=== PATIENT | female | born 1955 | race American Indian/Alaskan Native ===

== ENCOUNTER 2017-11-19 06:34 | Day surgery (SDC) | payer BC ==
[~2017-11-19 06:34] MED LIST: ANCEF/STERILE WATER 2 GM/20 ML IV NR; MARCAINE-EPI 0.25%-1:200,000 INFILTRATI ONE; NACL 0.9% IR ONE
[2017-11-19] MEDS ORDERED: MARCAINE-EPI 0.25%-1:200,000 INFILTRATI ONE (06:55)
[2017-11-19] MEDS ORDERED: NACL BACTERIOSTATIC INFILTRATI ONE (07:08)
--- NOTE | 2017-11-19 07:39 | Anesthesia Consultation ---
Anesthesia Consult and Med Hx Date of service: 11/19/17 - Airway Anesthetic Teeth Evaluation: Good ROM Head & Neck: Adequate Mental/Hyoid Distance: Adequate Mallampati Class: Class II Intubation Access Assessment: Good - Pulmonary Exam CTA: Yes - Cardiac Exam Cardiac Exam: No Murmur - Pre-Operative Health Status ASA Pre-Surgery Classification: ASA2 Proposed Anesthetic Plan: General - Pulmonary Hx Smoking: Yes (FORMER QUIT 1981) - Central Nervous System Hx Back Pain: Yes Hx Psychiatric Problems: No - Other Systems Hx Alcohol Use: Yes Hx Substance Use: No Hx Cancer: Yes
--- NOTE | 2017-11-19 07:39 | Anesthesia Day of Surgery ---
Anesthesia Day of Surgery - Day of Surgery Patient Examined: Yes Patient H&P Reviewed: Yes Patient is NPO: Yes
[2017-11-19] MEDS ORDERED: LACTATED RINGERS 1,000 ML IV SCH (08:00)
[2017-11-19] MEDS ORDERED: NEURONTIN PO NR (08:00)
[2017-11-19] MEDS ORDERED: VERSED IV NR (08:00)
[2017-11-19] MEDS ORDERED: PEPCID IV NR (08:00)
[2017-11-19] MEDS ORDERED: ANCEF ONE (08:07)
[2017-11-19] MEDS ORDERED: SUBLIMAZE ONE (08:07)
[2017-11-19] MEDS ORDERED: QUELICIN ONE (08:07)
[2017-11-19] MEDS ORDERED: DIPRIVAN 10 MG/ML IV ONE (08:07)
[2017-11-19] MEDS ORDERED: ZOFRAN ONE (08:07)
[2017-11-19] MEDS ORDERED: ZEMURON IV ONE (08:07)
[2017-11-19] MEDS ORDERED: ePHEDrine 50 MG/5 ML-0.9% NACL IV ONE (09:13)
[2017-11-19] MEDS ORDERED: ROBINUL ONE (09:54)
[2017-11-19] MEDS ORDERED: TORADOL ONE (09:54)
[2017-11-19] MEDS ORDERED: BLOXIVERZ ONE (09:54)
[2017-11-19] MEDS ORDERED: DECADRON ONE (10:00)
--- NOTE | 2017-11-19 10:04 | Operative Report ---
Operative Report Operative Report: [Date of procedure: 11/19/2017 Pre-operative diagnosis: Incarcerated ventral hernia 3 Post-operative diagnosis: Same Procedure name(s): Laparoscopic laparoscopic incarcerated ventral hernia repair with mesh Surgeon: Nahum Brown MD Licensing Worker: None Anesthesia: General, 0.25% Marcaine EBL: Minimal Specimens: None Implants: Ethicon proceed 4 x 6" mesh Complications: None Instrument Count: Correct Indications: This is a 62 -year-old patient presents with a incarcerated ventral hernia that is now causing symptoms. The patient was offered the above- named procedures possible treatment modality. The risks and benefits discussed until all questions were answered. The patient was subsequent brought to the OR. Findings: Incarcerated ventral hernia in the midline Procedure: The patient was placed supine on the table. We reviewed the informed consent. After adequate anesthesia. Patient was prepped and draped in the usual sterile fashion. A 5 mm incision was made in the right quadrant. Using Optiview technique we placed a 5 mm port at this position. The abdomen was then insufflated to 15 mm mercury. We introduced the camera and examined the abdomen. We began examining the defect. At this time we placed a 5 mm right lower quadrant port under direct vision and after infiltration of local anesthetic. A 10 mm left upper quadrant port was also placed. The 3 defects were identified. All containing incarcerated preperitoneal and omental fat. Using internal retraction and electrocautery, I lysed the adhesions to the incarcerated contents and this allowed us to completely reduce the hernias. We then decreased the intra-abdominal pressure. We then chose a 4 x 6"" proceed mesh with a central 2-0 Vicryl transfascial stitch. This was introduced into the abdomen through the 10 mm port. We used a suture passer to center the mesh over the middle of the defect. We then secured the edges of the mesh using a pro-tack device. A double crown technique was used to place the tacks. We had good coverage of the hernia defect. We then evacuated the insufflation. Removed all ports and closed all port sites using a 4-0 Monocryl in a subcuticular fashion. The patient tolerated the procedure well. The patient was awakened, extubated, and transferred to PACU in no apparent distress.]
--- NOTE | 2017-11-19 10:08 | Short Stay Summary ---
Short Stay Documentation Date of service: 11/19/17 - Allergies and Medications Current Medications: Allergies codeine Allergy (Verified 11/18/17 09:52) Hives Home Medications Medication Instructions Recorded Confirmed Last Taken Type metFORMIN [Glucophage] 500 mg PO BID 11/18/17 11/18/17 Unknown History Active Medications Cefazolin Sodium (Ancef/Sterile Water 2 Gm/20 Ml) 2 gm IV PREOP NR Stop: 11/19/17 23:59 Celecoxib (Celebrex) 200 mg PO PREOP NR Stop: 11/19/17 10:00 Last Admin: 11/19/17 07:46 Dose: 200 mg Famotidine (Pepcid) 20 mg IV PREOP NR Stop: 11/19/17 10:00 Last Admin: 11/19/17 07:52 Dose: 20 mg Gabapentin (Neurontin) 300 mg PO PREOP NR Stop: 11/19/17 10:00 Last Admin: 11/19/17 07:46 Dose: 300 mg Lactated Ringer's (Lactated Ringers) 1,000 mls @ 100 mls/hr IV DIRECT URMILA Last Admin: 11/19/17 07:48 Dose: 100 mls/hr Midazolam HCl (Versed) 2 mg IV PREOP NR Stop: 11/19/17 23:59 Last Admin: 11/19/17 07:50 Dose: 2 mg - Brief post op/procedure progress note Condition: stable - Hospital course Hospital course: Unremarkable - Disposition Condition at discharge: Stable Disposition: DC-01 TO HOME OR SELFCARE Short Stay Discharge Plan Activity: no restrictions, advance as tolerated Diet: regular Wound: keep clean and dry, other (remove abdominal binder when sleeping. Remove pressure bandage in 2 days.) Follow up with: ALLISON LEMUS MD [Primary Care Provider] - 7 Days MAJOR ABDI MD [Staff Physician] - 7 Days Prescriptions: Ondansetron [Zofran TAB] 4 mg PO Q8HR PRN #20 tablet PRN Reason: Nausea oxyCODONE /ACETAMINOPHEN [Percocet 5/325] 1 tab PO Q6HR PRN #30 tablet PRN Reason: Pain
[2017-11-19] MEDS ORDERED: ZOFRAN IV PRN (10:30)
[2017-11-19] MEDS ORDERED: TORADOL IV PRN (10:30)
--- NOTE | 2017-11-19 10:30 | Post Anesthesia Evaluation ---
- Post Anesthesia Evaluation Patient Participated: Yes Airway Patent: Yes Stable Respiratory Function: Yes Nausea/Vomiting: No Temp > 96.8F: Yes Pain Manageable: Yes Adequeate Hydration: Yes Anesthesia Complications: No
[2017-11-19] MEDS: DILAUDID IV PRN ×4 (10:40→11:15)
[2017-11-19] MEDS ORDERED: PERCOCET 5/325 PO PRN (11:24)
[2017-11-19 16:47] VITALS: BP 110/57
== END 2017-11-19 13:19 | disposition home or self-care (01) ==
LOC: OR 06:34
PROVIDERS: ATTEND Surgery
DX: K43.6 Other and unspecified ventral hernia with obstruction, without gangrene (principal); E10.9 Type 1 diabetes mellitus without complications; M19.90 Unspecified osteoarthritis, unspecified site; E66.9 Obesity, unspecified; Z68.41 Body mass index [BMI] 40.0-44.9, adult; Z79.84 Long term (current) use of oral hypoglycemic drugs; Z88.5 Allergy status to narcotic agent; Z90.49 Acquired absence of other specified parts of digestive tract; Z98.51 Tubal ligation status; Z87.891 Personal history of nicotine dependence; Z85.51 Personal history of malignant neoplasm of bladder; Z98.890 Other specified postprocedural states; Z80.42 Family history of malignant neoplasm of prostate
CPT/HCPCS: 49653; C1781; J0330; J0690; J1100; J1170; J1885; J2250; J2405; J2704; J2710; J3010; J7120

== ENCOUNTER 2020-05-02 15:31 | Emergency (ER) | payer BC, MEDICARE ==
[2020-05-02] MEDS ORDERED: SUMAtriptan SUCCINATE 50 MG TAB PO ONE (18:45)
[2020-05-02] MEDS ORDERED: ONDANSETRON 4 MG ODT TAB PO ONE (18:45)
--- NOTE | 2020-05-02 19:19 | Cat Scan Report ---
NONENHANCED CT SCAN OF THE HEAD: INDICATION / CLINICAL INFORMATION: 65 years Female; headache. TECHNIQUE: Routine CT head without contrast. All CT scans at this location are performed using CT dos e reduction for ALARA by means of automated exposure control. COMPARISON: CT scan of the head from 11/18/2013 FINDINGS: BRAIN / INTRACRANIAL CONTENTS: No acute hemorrhage, mass effect, midline shift, hydrocephalus, or acu te, large territorial infarct. No chronic infarct or focal atrophy. Normal brain volume and ventricul ar/sulcal size for age. No significant white matter abnormality. No interval change CRANIOCERVICAL JUNCTION: No significant abnormality. ORBITS: No significant abnormality of visualized orbits. SINUSES / MASTOIDS: No significant abnormality of the visualized paranasal sinuses or mastoid air darryl ls. ADDITIONAL FINDINGS: None. IMPRESSION: No focal mass, hemorrhage, hydrocephalus, or acute, large territorial infarct. Signer Name: Rissa Brandt MD Signed: 05/02/2020 7:15 PM Workstation Name: [id number]
--- NOTE | 2020-05-02 20:37 | Emergency Department Report ---
ED Headache HPI - General Chief Complaint: Head Injury Stated Complaint: HEADACHE FROM A FALL Time Seen by Provider: 05/02/20 18:41 - History of Present Illness Initial Comments: Patient is a 65-year-old female presents emergency room with complaints of a right temporal headache that began 2 weeks ago. She states back in November she had her head against the door frame but did not lose consciousness and she was concerned that that could be the cause of her headache. She denies any vision changes, vomiting, numbness, weakness, bowel or bladder incontinence, neck stiffness, gait disturbance, speech disturbance. She denies any previous history of migraines. She also has medical history of prediabetes and arthritis. She has an allergy to codeine. She states that she has been taking Goody powder and tramadol without much relief. Allergies/Adverse Reactions: Allergies codeine Allergy (Verified 05/02/20 15:46) Hives Home Medications: Ambulatory Orders metFORMIN [Glucophage] 500 mg PO BID 11/18/17 Ondansetron [Zofran TAB] 4 mg PO Q8HR PRN #20 tablet 11/19/17 oxyCODONE /ACETAMINOPHEN [Percocet 5/325] 1 tab PO Q6HR PRN #30 tablet 11/19/17 Butalb/Acetaminophen/Caffeine [Fioricet 50-300-40 mg CAP] 1 cap PO Q8HR PRN #12 cap 05/02/20 ED Review of Systems ROS: Stated complaint: HEADACHE FROM A FALL Other details as noted in HPI Comment: All other systems reviewed and negative ED Past Medical Hx - Past Medical History Hx Diabetes: Yes (SINCE 2016) Hx Arthritis: Yes Hx HIV: No - Surgical History Hx Cholecystectomy: Yes - Social History Smoking Status: Never Smoker - Medications Home Medications: Home Medications Medication Instructions Recorded Confirmed Last Taken Type metFORMIN [Glucophage] 500 mg PO BID 11/18/17 11/18/17 Unknown History Ondansetron [Zofran TAB] 4 mg PO Q8HR PRN #20 tablet 11/19/17 Unknown Rx oxyCODONE /ACETAMINOPHEN [Percocet 1 tab PO Q6HR PRN #30 tablet 11/19/17 Unknown Rx 5/325] Butalb/Acetaminophen/Caffeine 1 cap PO Q8HR PRN #12 cap 05/02/20 Unknown Rx [Fioricet 50-300-40 mg CAP] ED Physical Exam - General Limitations: No Limitations General appearance: alert, in no apparent distress - Head Head exam: Present: atraumatic, normocephalic, other (no ttp or edema overlying the temporal artery bilaterally) - Eye Eye exam: Present: normal appearance, PERRL, EOMI. Absent: periorbital swelling, periorbital tenderness Pupils: Present: normal accommodation - ENT ENT exam: Present: mucous membranes moist - Respiratory Respiratory exam: Present: normal lung sounds bilaterally. Absent: respiratory distress, wheezes, rales, rhonchi, stridor, chest wall tenderness, accessory muscle use, decreased breath sounds, prolonged expiratory - Cardiovascular Cardiovascular Exam: Present: regular rate, normal rhythm, normal heart sounds. Absent: systolic murmur, diastolic murmur, rubs, gallop - Neurological Exam Neurological exam: Present: alert, oriented X3, CN II-XII intact, normal gait. Absent: motor sensory deficit - Psychiatric Psychiatric exam: Present: normal affect, normal mood - Skin Skin exam: Present: warm, dry, intact ED Course Vital Signs 05/02/20 05/02/20 05/02/20 15:47 15:51 20:46 Temperature 98.6 F Pulse Rate 86 88 Respiratory 20 20 Rate Blood Pressure 130/70 126/68 [Right] O2 Sat by Pulse 98 98 Oximetry ED Medical Decision Making - Lab Data Vital Signs 05/02/20 05/02/20 05/02/20 15:47 15:51 20:46 Temperature 98.6 F Pulse Rate 86 88 Respiratory 20 20 Rate Blood Pressure 130/70 126/68 [Right] O2 Sat by Pulse 98 98 Oximetry - Radiology Data Radiology results: report reviewed Head CT no focal mass, hemorrhage, hydrocephalus, or acute, large territorial infarct - Medical Decision Making Patient is a 65-year-old female presents emergency room with complaints of a right temporal headache that began 2 weeks ago. She states back in November she had her head against the door frame but did not lose consciousness and she was concerned that that could be the cause of her headache. She denies any vision changes, vomiting, numbness, weakness, bowel or bladder incontinence, neck stiffness, gait disturbance, speech disturbance. She denies any previous history of migraines. She also has medical history of prediabetes and arthritis. She has an allergy to codeine. She states that she has been taking Goody powder and tramadol without much relief. Patient has no neurological deficits on exam. head CT : Head CT no focal mass, hemorrhage, hydrocephalus, or acute, large territorial infarct. Patient given medications while in the ED and headache completely resolved and she was feeling much better and ready to go home. Discussed all findings with patient. Discussed the importance of neurology follow-up with patient. Patient given prescription for Fioricet. Advised patient Please take medication as prescribed as needed. Increase your water intake. Follow-up with a neurologist. Follow-up with your primary care doctor. Return to emergency room for any new or worsening symptoms. Critical care attestation.: If time is entered above; I have spent that time in minutes in the direct care of this critically ill patient, excluding procedure time. ED Disposition Clinical Impression: Headache Qualifiers: Headache type: unspecified Headache chronicity pattern: acute headache Intractability: not intractable Qualified Code(s): R51.9 - Headache, unspecified Disposition: - TO HOME OR SELFCARE Is pt being admited?: No Does the pt Need Aspirin: No Condition: Stable Instructions: Migraine Headache, [id number] Additional Instructions: Please take medication as prescribed as needed. Increase your water intake. Follow-up with a neurologist. Follow-up with your primary care doctor. Return to emergency room for any new or worsening symptoms. Prescriptions: Butalb/Acetaminophen/Caffeine [Fioricet 50-300-40 mg CAP] 1 cap PO Q8HR PRN #12 cap PRN Reason: headache Referrals: ALLISON LEMUS MD [Primary Care Provider] - 3-5 Days YENI BUTTS MD [Referring] - 3-5 Days [facility] [Provider Group] - 3-5 Days Time of Disposition: 20:36 Print Language: POLISH
[2020-05-02 20:47] VITALS: BP 126/68
== END 2020-05-02 20:46 | disposition home or self-care (01) ==
LOC: ED 15:31
DX: R51.9 Headache, unspecified (principal); E11.9 Type 2 diabetes mellitus without complications; M19.91 Primary osteoarthritis, unspecified site; Z90.49 Acquired absence of other specified parts of digestive tract; Z79.899 Other long term (current) drug therapy; Z88.8 Allergy status to other drugs, medicaments and biological substances
CPT/HCPCS: 70450; Q0162